=== PATIENT | female | born 1995 | race Caucasian/White ===

== ENCOUNTER 2022-09-19 22:38 | Emergency (ER) | payer OTHER ==
[2022-09-19 22:45] VITALS: BP 121/55
[2022-09-19] MEDS ORDERED: ACETAMINOPHEN 325 MG TABLET PO STA (22:47)
[2022-09-19] MEDS ORDERED: OXYMETAZOLINE HCL 100 SPRAYS BOTTLE NAS STA (23:18)
--- NOTE | 2022-09-19 23:18 | ED Physician Documentation ---
History of Present Illness - Stated complaint Stated Complaint: HEACHACHE/SORE THROAT - Chief complaint Chief Complaint: General - History obtained from History obtained from: Patient - Additonal information Additional information: 26-year-old, previously healthy, presents with viral URI symptoms for the past day. She states that her was sick with similar symptoms last week. She complains of mild nonproductive cough, sore throat, nasal congestion, and sinus headache. Review of Systems Constitutional: denies: Fever, Chills Nose: reports: Congestion Throat: reports: Sore throat Respiratory: reports: Cough PD PAST MEDICAL HISTORY - Past Medical History Psych: ADD/ADHD - Present Medications Home Medications: Ambulatory Orders Medication Instructions Recorded Confirmed Dextroamphetamine/Amphetamine 30 mg PO DAILY 09/19/22 09/19/22 [Adderall Xr 30 mg Capsule] - Allergies Allergies/Adverse Reactions: Allergies Allergy/AdvReac Type Severity Reaction Status Date / Time No Known Drug Allergies Allergy Verified 09/19/22 22:43 - Social History Does the pt smoke?: Yes Smoking Status: Current every day smoker Does the pt drink ETOH?: No Does the pt have substance abuse?: No - Immunizations Immunizations are current?: Yes - POLST Patient has POLST: No PD ED PE NORMAL - Vitals Vital signs reviewed: Yes - General General: Alert and oriented X 3, No acute distress, Well developed/nourished - HEENT HEENT: Atraumatic, PERRL, EOMI, Moist mucous membranes, Pharynx benign - Neck Neck: Supple, no meningeal sign - Cardiac Cardiac: RRR - Respiratory Respiratory: No respiratory distress, Clear bilaterally Results - Vitals Vitals: Vital Signs - 24 hr 09/19/22 22:43 Temperature 36.8 C Heart Rate 88 Respiratory 16 Rate Blood Pressure 121/55 L O2 Saturation 100 Oxygen O2 Source Room air PD Medical Decision Making - ED course ED course: 26-year-old woman presents with viral URI symptoms. Symptomatic care discussed. Return precautions given. Work note provided. Departure - Departure Disposition: 01 Home, Self Care Clinical Impression: Viral URI with cough Condition: Good Instructions: ED Viral Syndrome Comments: You were seen in the emergency department for a viral upper respiratory infection. You can take [id number] oxymetazoline or phenylephrine spray (brand name Afrin) as needed for nasal congestion. Get lots of rest and stay well-hydrated. Return to the emergency department for new or worsening symptoms or other concerns. Follow-up with your primary care provider Forms: Activity restrictions
== END 2022-09-19 23:42 | disposition home or self-care (01) ==
LOC: ED 22:38
DX: J06.9 Acute upper respiratory infection, unspecified (principal); F17.200 Nicotine dependence, unspecified, uncomplicated
CPT/HCPCS: 99282; 99283; A9270